=== PATIENT | male | born 1995 | race Caucasian/White ===

== ENCOUNTER 2018-03-31 09:25 | Emergency (ER) | payer BC ==
[2018-03-31] MEDS: HYDROCODONE/APAP (5/325) TAB PO ×2 (09:46→11:03)
[2018-03-31] MEDS: DIPHTH/TET/ACEL PERTUSS (ADULT) 0.5 ML VIAL IM* (09:47)
== END 2018-03-31 12:18 | disposition home or self-care (01) ==
LOC: FTE 12:18
DX: S62.336A Displaced fracture of neck of fifth metacarpal bone, right hand, initial encounter for closed fracture (principal); F17.210 Nicotine dependence, cigarettes, uncomplicated; W22.01XA Walked into wall, initial encounter; Y92.9 Unspecified place or not applicable; Z23 Encounter for immunization
CPT/HCPCS: 29125; 73130-RT; 90471; 90715; 99283-25